=== PATIENT | female | born 1990 | race Caucasian/White ===

== ENCOUNTER 2020-07-27 09:00 | Emergency (ER) | payer MEDICAID, OTHER ==
[~2020-07-27] VITALS: Ht 165.1 cm; Wt 95.3 kg
[2020-07-27 09:15] VITALS: BP_SYST 125
[2020-07-27] MEDS ORDERED: LIDOCAINE 1%, 20 ML MDV 20 ML ONE (09:25)
[2020-07-27] MEDS ORDERED: LIDOCAINE/EPI 1% 1:100000 20 ML VIAL INJ ONE (09:30)
[2020-07-27] MEDS ORDERED: BACITRACIN 1 GM OINT TP ONE (09:30)
[2020-07-27] MEDS ORDERED: DIPH-TET-PERTUS Vaccine 0.5 ML VIAL (ADACEL) I.M. ONE (09:30)
[2020-07-27] MEDS ORDERED: CEPH250C PO (10:03)
[2020-07-27 11:18] VITALS: BP_SYST 127
== END 2020-07-27 11:18 | disposition home or self-care (01) ==
LOC: SED 09:00
DX: S81.012A Laceration without foreign body, left knee, initial encounter (principal); W18.39XA Other fall on same level, initial encounter; Y93.89 Activity, other specified; Y92.89 Other specified places as the place of occurrence of the external cause; Y99.8 Other external cause status
CPT/HCPCS: 12002; 73560; 90471; 90715; 99283; J2001